=== PATIENT | male | born 1980 | race Caucasian/White ===

== ENCOUNTER 2017-12-24 02:19 | Emergency (ER) | payer MEDICAID ==
[~2017-12-24] VITALS: Ht 172.7 cm; Wt 140.0 kg
[2017-12-24] MEDS: LIDOCAINE HCL 1% 20ML VIAL (Pyxis) INJ MC ONE (06:41)
[2017-12-24] MEDS: BACITRACIN ZINC OINT UDPKT TOP ONE (06:41)
[2017-12-24 09:08] VITALS: BP 155/80
== END 2017-12-24 09:09 | disposition home or self-care (01) ==
LOC: ER 02:19
DX: L02.215 Cutaneous abscess of perineum (principal); E11.9 Type 2 diabetes mellitus without complications; F12.10 Cannabis abuse, uncomplicated
CPT/HCPCS: 46050; 99284; J3490

== ENCOUNTER 2022-09-08 09:24 | Emergency (ER) | payer MEDICAID ==
[~2022-09-08] VITALS: Ht 177.8 cm; Wt 106.0 kg
[2022-09-08] MEDS ORDERED: BACITRACIN ZINC OINT UDPKT TOP ONE (10:30)
[2022-09-08] MEDS ORDERED: IBUPROFEN 600MG TABLET PO ONE (10:30)
[2022-09-08] MEDS ORDERED: LIDOCAINE HCL/PF 1% 10 MG/ML 5ML VIAL INFIL ONE (10:30)
[2022-09-08 10:36] VITALS: BP 166/116
[2022-09-08] MEDS ORDERED: CEPH500T MT (11:37)
[2022-09-08] MEDS ORDERED: SULF1TAB48 MT (11:37)
== END 2022-09-08 11:53 | disposition home or self-care (01) ==
LOC: ER 09:24
DX: L02.31 Cutaneous abscess of buttock (principal); E11.9 Type 2 diabetes mellitus without complications; F12.10 Cannabis abuse, uncomplicated
CPT/HCPCS: 10060; 99283; J3490

== ENCOUNTER 2023-08-05 15:18 | Emergency (ER) | payer MEDICAID, OTHER ==
[~2023-08-05] VITALS: Ht 167.6 cm; Wt 118.0 kg
[~2023-08-05 15:18] MED LIST: CEPH500T MT; SULF1TAB48 MT
[2023-08-05 15:47] VITALS: O2SAT 99
[2023-08-05] MEDS ORDERED: LIDOCAINE HCL/PF 1% 10 MG/ML 5ML VIAL INFIL ONE (17:45)
[2023-08-05] MEDS ORDERED: BACITRACIN ZINC OINT UDPKT TOP ONE (17:45)
[2023-08-05] MEDS ORDERED: NAPR-681 PO (17:57)
[2023-08-05] MEDS ORDERED: SULF1TAB48 MT (17:57)
[2023-08-05] MEDS ORDERED: CEPH500C2 MT (17:57)
[2023-08-05 18:02] VITALS: BP 127/84; PULSE 73; RESP 18; TEMP 98.4
== END 2023-08-05 18:04 | disposition home or self-care (01) ==
LOC: ER 15:18
DX: L03.312 Cellulitis of back [any part except buttock and flank] (principal); L72.0 Epidermal cyst; E11.9 Type 2 diabetes mellitus without complications; I10 Essential (primary) hypertension; F12.10 Cannabis abuse, uncomplicated; Z79.899 Other long term (current) drug therapy
CPT/HCPCS: 99283; J3490